=== PATIENT | male | born 1985 | race Two or more races ===

== ENCOUNTER 2022-01-08 03:06 | Inpatient (IN) | payer MEDICAID, OTHER ==
[~2022-01-08] VITALS: Ht 172.7 cm; Wt 99.1 kg
--- NOTE | 2022-01-08 03:16 | NUR ---
[id number] FROM THE [facility] C/O BILATERAL LEG PAIN +DEFORMITY S/P JUMPING DOWN 7FT FENCE. BILATERAL LOWER EXTRTEMITY DEFORMITIES, SPLINTED BY RA. NO OPEN TRAUMA -HEAD TRAUMA -KO. 100MCG FENTANYL GIVEN SALES RECRUITER. Addendum: 01/08/22 at 1418 by EIL CALLED [facility] AND WAS NOTIFIED THAT THEY HAVE RECIEVED THE DISC AND IS NOW UNDER REVIEW. AWAITING FOR ANY UPDATES
--- NOTE | 2022-01-08 03:19 | NUR ---
16G LAC PLACED PROFESSOR OF MECHANICAL ENGINEERING BY EMS. PATENT AND INTACT.
[2022-01-08] MEDS ORDERED: HYDROMORPHONE 1 MG/1 ML DISP.SYRIN ONE ×5 (03:27→23:17)
[2022-01-08] MEDS ORDERED: HYDROMORPHONE 1 MG/1 ML DISP.SYRIN IV ONE ×2 (03:30→08:00)
--- NOTE | 2022-01-08 03:37 | NUR ---
XRAY AT BEDSIDE
[2022-01-08 03:41] LABS: BASOPHILS # (AUTO) 0.1 K/uL (0.0-0.2); BASOPHILS % (AUTO) 0.9 % (0.0-2.0); EOSINOPHILS % (AUTO) 0.1 % (0.0-6.0); HEMATOCRIT 44 % (39-51); HEMOGLOBIN 15.3 g/dL (13.5-17.5); LYMPHOCYTES # (AUTO) 1.1 K/uL (0.8-4.8); LYMPHOCYTES % (AUTO) 10.8 % (20.0-44.0); MEAN CORPUSCULAR HGB CONC 35 g/dl (31.0-36.0); MEAN CORPUSCULAR VOLUME 88 fL (80-96); MONOCYTES # (AUTO) 0.8 K/uL (0.1-1.30); MONOCYTES % (AUTO) 8.2 % (2.0-12.0); NEUTROPHILS # (AUTO) 8.2 K/uL (1.8-8.9); PLATELET COUNT (AUTO) 213 K/uL (150-450); RED BLOOD CELL COUNT(AUTO) 5.04 MIL/uL (4.5-6.0); WHITE BLOOD COUNT (AUTO) 10.3 K/uL (4.3-11.0)
[2022-01-08 03:59] LABS: CALCIUM, SERUM 8.9 mg/dL (8.5-10.1); CREATININE 1.2 mg/dL (0.6-1.3); POTASSIUM 3.9 mmol/L (3.5-5.1)
--- NOTE | 2022-01-08 04:05 | NUR ---
DR BROCK ON THE PHONE WITH FRANCY BERNSTEIN FOR ORTHO CONSULT
[2022-01-08] MEDS ORDERED: LIDOCAINE 2% 20 ML MDV ONE (04:09)
[2022-01-08] MEDS ORDERED: LIDOCAINE 2% 20 ML MDV TP ONE (04:30)
--- NOTE | 2022-01-08 04:42 | NUR ---
BILATERAL SPLINTS APPLIED TO LOWER EXTREMITIES. SHORT LEG POSTERIOR WITH ANKLE STIRRUP BILATERALLY. PMS EQUAL AND INTACT.
--- NOTE | 2022-01-08 04:45 | NUR ---
LEFT FOR CT
--- NOTE | 2022-01-08 04:47 | NUR ---
COVID TEST COLLECTED AND SENT TO LAB
--- NOTE | 2022-01-08 04:48 | NUR ---
PT PROVIDED WITH WARM BLANKET FOR COMFORT.
[2022-01-08] MEDS ORDERED: MAGNESIUM HYDROXIDE 30 ML UDC PO PRN (05:00)
[2022-01-08] MEDS ORDERED: IV D5/0.45 NACL 1,000 ML IV PRN (05:00)
[2022-01-08] MEDS ORDERED: ONDANSETRON HCL/PF 4 MG/2 ML VIAL IVP PRN (05:00)
[2022-01-08] MEDS ORDERED: MORPHINE SULFATE INJ 2 MG/ML DISP.SYRIN IV PRN (05:00)
[2022-01-08] MEDS ORDERED: ACETAMINOPHEN 325 MG TABLET PO PRN (05:00)
[2022-01-08] MEDS ORDERED: MORPHINE SULFATE INJ 4 MG/ML DISP.SYRIN ONE (06:30)
--- NOTE | 2022-01-08 06:38 | NUR ---
PT PULLED OUT IV LINE. NEW IV LINE ESTABLISHED 20G LAC.
--- NOTE | 2022-01-08 07:27 | NUR ---
received a call from Dr. Yeh and was notified that the pt needs higher level of care to further admit this pt.
--- NOTE | 2022-01-08 07:33 | NUR ---
CALLED [facility] REGARDING PT POSSIBLE TRANSFER AND WAS NOTIFIED THAT THE [facility] IS CURRENTLY AT CAPACITY AND NOT ABLE TO TAKE THE PT
--- NOTE | 2022-01-08 07:46 | NUR ---
CALLED [facility] REGARDING PT TRANSFER AND GAVE CURRENT PT CLINICALS AND FAXED PT'S CLINICALS TO [phone]
--- NOTE | 2022-01-08 07:57 | NUR ---
CALLED [facility] AND WAS NOTIFIED OF PT STATUS AND FAXED OVER PT CLINICALS TO [phone]. AWAITING FOR A CALL BACK TO SEE IF PT CAN BE TRANSFERED
--- NOTE | 2022-01-08 07:58 | NUR ---
IV DISLODGED, 4X4 GUAZE AND PRESSURE APPLIED TO SITE. NEW IV ESTABLIHSED L HAND 18G.
--- NOTE | 2022-01-08 08:31 | NUR ---
[facility] CALLED AND WAS NOTIFIED THAT THEY ARE NOT ABLE TO TAKE THE PT DUE TO THEM BEING IN CAPACITY
--- NOTE | 2022-01-08 08:42 | NUR ---
CALLED [facility] TO INITIATE TRAUMA TRANSFER. GAVE PT CLINICALS VERBALLY AND ALSO FAXED PT'S CLINICALS TO [phone]. AWAITING A CALL BACK WITH ANY UPDATES
--- NOTE | 2022-01-08 10:06 | NUR ---
[facility] CALLED TO ASK FOR THE PT PHYSICAL DISC TO BE SEN OVER TO [facility] TRANSFER [facility]ENTER. THE ADRESS FOR DROP OFF IS [phone] [facility] [address] [facility] [facility] [phone]
--- NOTE | 2022-01-08 10:07 | NUR ---
CALLED THE EDUCATION INTERN TO SEND OVER PT DISC AND WAS NOTIFIED THAT THE ETA FOR [employer] WILL BE 1100
[2022-01-08] MEDS: HYDROMORPHONE 1 MG/1 ML DISP.SYRIN IV PRN ×3 (11:20→23:21)
--- NOTE | 2022-01-08 11:40 | NUR ---
BAUTISTA PICKED UP BY [place]
--- NOTE | 2022-01-08 14:18 | NUR ---
CALLED [facility] REGARDING PT DISC AND WAS NOTIFIED THAT THE DISC WAS RECEIVED AND AWAITING FEEDBACK.
--- NOTE | 2022-01-08 14:22 | NUR ---
CALLED [facility] REGARDING PT POSSIBLE ACCEPTANCE INFO AND WAS NOTIFIED THAT THE PT CANNOT BE ACCEPTED DUE TO NOT MEETING TRAUMA CRITERIA
--- NOTE | 2022-01-08 14:30 | NUR ---
PT PULLED OUT IV, 4X4 AND PRESSURE APPLIED.
--- NOTE | 2022-01-08 15:03 | NUR ---
CALLED DR. CHENG REGARDING PT STATUS AND ALSO PT ADMISSION STATUS FOR TRANSFER
--- NOTE | 2022-01-08 22:13 | NUR ---
REC'D A CALL FROM MIAH AT [facility] STATED" OUT ORTHO DR MARIA DEL CARMEN NIELSEN IS DENYING THE CASE AT THIS [facility] AND WANTS THE EXTERNAL FIXATION TO BE DONE BY YOUR ORTHO TEAM AT THE HOSPITAL BEFORE TRANSFERRING THE PATIENT". DR BROCK AND DR PHAM MADE AWARE. DAY, ORTHO PA, WAS PAGED AND DR BROCK SPOKE TO HIM.
--- NOTE | 2022-01-09 03:14 | NUR ---
PT SLEEPING COMFORTABLY, ABLE TO COMMUNICATE NEEDS AND ALL NEEDS MET. CALL LIGHT WITHIN REACH
[2022-01-09] MEDS ORDERED: HYDROMORPHONE 1 MG/1 ML DISP.SYRIN ONE ×3 (04:26→13:13)
[2022-01-09] MEDS: HYDROMORPHONE 1 MG/1 ML DISP.SYRIN IV PRN ×3 (04:28→13:38)
--- NOTE | 2022-01-09 07:30 | NUR ---
Lou lind pt in garny asleepy
--- NOTE | 2022-01-09 08:00 | NUR ---
RESING ASLEEPY ON AND OFF WATING FOR [facility]
[2022-01-09 08:47] LABS: BASOPHILS # (AUTO) 0.1 K/uL (0.0-0.2); BASOPHILS % (AUTO) 0.7 % (0.0-2.0); EOSINOPHILS % (AUTO) 0.3 % (0.0-6.0); HEMATOCRIT 35 % (39-51); HEMOGLOBIN 12.1 g/dL (13.5-17.5); LYMPHOCYTES # (AUTO) 1.1 K/uL (0.8-4.8); LYMPHOCYTES % (AUTO) 12.6 % (20.0-44.0); MEAN CORPUSCULAR HGB CONC 35 g/dl (31.0-36.0); MEAN CORPUSCULAR VOLUME 88 fL (80-96); MONOCYTES # (AUTO) 1.3 K/uL (0.1-1.30); MONOCYTES % (AUTO) 14.3 % (2.0-12.0); NEUTROPHILS # (AUTO) 6.4 K/uL (1.8-8.9); NEUTROPHILS % (AUTO) 72.1 % (43.0-81.0); PLATELET COUNT (AUTO) 156 K/uL (150-450); RED BLOOD CELL COUNT(AUTO) 3.93 MIL/uL (4.5-6.0); WHITE BLOOD COUNT (AUTO) 8.9 K/uL (4.3-11.0)
--- NOTE | 2022-01-09 08:51 | NUR ---
KEEP NPO PER DR. CHENG
--- NOTE | 2022-01-09 08:54 | NUR ---
CALLED [facility] [phone] NAPOLES TO CALL US BACK TO SPEAK WITH DR. CHENG
[2022-01-09 09:12] LABS: CALCIUM, SERUM 7.6 mg/dL (8.5-10.1); CREATININE 1.1 mg/dL (0.6-1.3); MAGNESIUM 2.3 mg/dL (1.8-2.4); PHOSPHORUS 3.3 mg/dL (2.5-4.9); POTASSIUM 4.1 mmol/L (3.5-5.1)
--- NOTE | 2022-01-09 09:21 | NUR ---
CALLED [facility] [phone] [facility] FAX [phone].
--- NOTE | 2022-01-09 09:53 | NUR ---
RESTING AND ASLEYP NO DISTRESS
--- NOTE | 2022-01-09 10:33 | NUR ---
YAZ FROM [facility] CALLED DR. NAPOLES IS IN SURGERY AND WANTED TO CONVEY THAT PT NEEDS EXTERNAL FIXATION PRIOR TO PRESENTATION. DR. CHENG INFORMED.
--- NOTE | 2022-01-09 11:03 | NUR ---
Henrietta doss in [facility] - 01/09/22 at 1119 by [email or web address] D/C INSTRACTION GIVEN TO PT AND FALLOW UP CARE GIVEN TO PT FULLY UNDERSTOOD PT REFUSED TO ADMIT INPT
--- NOTE | 2022-01-09 12:12 | NUR ---
[facility] CALLED PROFESSOR OF POLITICAL SCIENCE PAGED.
--- NOTE | 2022-01-09 12:49 | NUR ---
BED 109
[2022-01-09] MEDS ORDERED: ACETAMINOPHEN 325 MG TABLET PO PRN (13:00)
[2022-01-09] MEDS ORDERED: ONDANSETRON HCL/PF 4 MG/2 ML VIAL IVP PRN (13:00)
[2022-01-09] MEDS ORDERED: MORPHINE SULFATE INJ 2 MG/ML DISP.SYRIN IV PRN (13:00)
[2022-01-09] MEDS: IV NS 0.9% 1,000 ML IV SCH ×2 (13:08→22:33)
--- NOTE | 2022-01-09 13:17 | NUR ---
report given to marilynn baltazar to continue care.
[2022-01-09] MEDS ORDERED: MORPHINE SULFATE INJ 4 MG/ML DISP.SYRIN IV PRN (13:30)
--- NOTE | 2022-01-09 13:35 | NUR ---
SEEN BY ORTHO PA AT BED SIDE C/O PAIN 03/25 IN BOTH LOWER DILAUDID 1 MG IVP GIVEN
--- NOTE | 2022-01-09 13:40 | NUR ---
TO ROOM 109 MEDICALE FLOOR
--- NOTE | 2022-01-09 14:00 | NUR ---
RN NOTE PT RECEIVED FROM ER. [facility]. PT NOTED WITH BLE LEG WRAP. PT COMPLAINED OF MODERATE TO SEVERE PAIN DURING MOVEMENT OF BLE. V/S STABLE. WILL CONTINUE TO MONITOR.
[2022-01-09 16:00] VITALS: BP 144/94
[2022-01-09] MEDS ORDERED: DOCUSATE SODIUM LIQ 100 MG/10 ML UDC PO SCH (17:00)
[2022-01-09] MEDS ORDERED: ROCURONIUM BROMIDE 50 MG/5 ML ONE (17:46)
[2022-01-09] MEDS ORDERED: FENTANYL PF 250MCG/5ML AMPUL ONE (17:46)
--- NOTE | 2022-01-09 17:55 | NUR ---
RN NOTE PT TAKEN TO SURGERY. IN GOOD CONDITION. V/S STABLE.. WILL ENDORSE TO NEXT SHIFT. CONSENT FORMS SIGNED AND PRE OP CHECKLIST DONE.
[2022-01-09] MEDS ORDERED: BUPIVACAINE 0.25% 75 MG/30 ML VIAL ONE (18:56)
[2022-01-09] MEDS ORDERED: MIDAZOLAM HCL 2 MG/2ML VIAL ONE ×3 (20:06→20:49)
[2022-01-09] MEDS ORDERED: FENTANYL PF 100MCG/2ML AMPUL ONE (20:47)
[2022-01-09] MEDS ORDERED: ANESTHESIA TRAY IN PYXIS 1 EA TRAY MC ONE (20:50)
[2022-01-09] MEDS ORDERED: HEPARIN SODIUM, PORCINE 5000 UNITS/1 ML VIAL SQ SCH (21:00)
[2022-01-09] MEDS ORDERED: DOCUSATE SODIUM 250 MG CAPSULE PO PRN (21:00)
[2022-01-09] MEDS ORDERED: BISACODYL SUPP (10 MG) 10 MG/SUPP.RECT SUPP.RECT RC PRN (21:00)
[2022-01-09] MEDS ORDERED: SENNOSIDES 8.6 MG TABLET PO PRN (21:00)
--- NOTE | 2022-01-09 21:00 | NUR ---
POST OP Patient transferred from PACU, s/p stephan lower extremity external fixator. Dressing reinforced with PEPE Gee. Patient appears restless and confused, trying to reach out fixator and moving his legs sideways. Unable to educate at this time. Fall precaution maintained.
[2022-01-09 21:44] VITALS: BP 149/90
--- NOTE | 2022-01-09 22:20 | NUR ---
RESTRAINTS Patient restless, trying to reach out fixators, removed NC Oxygen by himself. Appears confused. Notified TEXTILE ENGINEER Martine Fu with orders place. Applied stephan soft wrist restraints to prevent pulling tubes/lines and injury.
[2022-01-09] MEDS: MORPHINE SULFATE INJ 4 MG/ML DISP.SYRIN IV PRN (22:22)
--- NOTE | 2022-01-09 22:22 | NUR ---
LEG/KNEE PAIN Patient restless, screaming, severe pain BLE. PRN Morphine given, will reassess pain.
[2022-01-09 23:00] VITALS: BP 135/82
[2022-01-10 00:07] VITALS: BP 139/88
--- NOTE | 2022-01-10 00:10 | NUR ---
LEG/KNEE PAIN Patient c/o leg/knee pain described as aching and sharp 12/23. PRN Blakeslee given, will reassess pain level. Addendum: 01/10/22 at 0730 by RIYA CANO RN [id number] Medication Blakeslee, administration not save by accident. Medication was pulled out from [employer], given to patient at 0010. Shyam/fullerette informed the incident. Empty packet of Blakeslee re scanned after original time was given to patient for records.
[2022-01-10] MEDS: HYDROCODONE/APAP 5/325MG TABLET PO PRN (02:26)
--- NOTE | 2022-01-10 03:00 | NUR ---
TRIAL REMOVED RESTRAINTS Patient in bed, more alert now. Ask for food to eat, provided. Good appetite. Education given on restraints, Risk and Benefits explained, patient verbalized understanding. Will cont to monitor.
[2022-01-10] MEDS: ANCEF 1 GM/50 ML D5W IV SCH ×4 (03:14→10:33)
[2022-01-10] MEDS: MORPHINE SULFATE INJ 4 MG/ML DISP.SYRIN IV PRN ×3 (04:53→17:00)
--- NOTE | 2022-01-10 04:53 | NUR ---
BLE PAIN Patient c/o severe pain 03/25 BLE. Denies N/V. Now on room air, tolerating well. PRN Morphine given, will reassess.
--- NOTE | 2022-01-10 05:00 | NUR ---
RESTRAINTS D/C Patient more alert now. Good appetite, handle conversation. Trial released Juan R soft wrist restraints successful. No skin injury under restraints.
[2022-01-10 05:24] VITALS: BP 122/87
[2022-01-10 06:53] LABS: BASOPHILS % (AUTO) 0.1 % (0.0-2.0); HEMATOCRIT 32 % (39-51); HEMOGLOBIN 11.6 g/dL (13.5-17.5); LYMPHOCYTES # (AUTO) 0.4 K/uL (0.8-4.8); LYMPHOCYTES % (AUTO) 4.3 % (20.0-44.0); MEAN CORPUSCULAR HGB CONC 36 g/dl (31.0-36.0); MEAN CORPUSCULAR VOLUME 87 fL (80-96); MONOCYTES # (AUTO) 0.8 K/uL (0.1-1.30); MONOCYTES % (AUTO) 9.5 % (2.0-12.0); NEUTROPHILS # (AUTO) 7.5 K/uL (1.8-8.9); NEUTROPHILS % (AUTO) 86.1 % (43.0-81.0); PLATELET COUNT (AUTO) 156 K/uL (150-450); RED BLOOD CELL COUNT(AUTO) 3.66 MIL/uL (4.5-6.0); WHITE BLOOD COUNT (AUTO) 8.7 K/uL (4.3-11.0)
--- NOTE | 2022-01-10 07:14 | NUR ---
RN OPENING NOTE- PT ASLEEP IN BED, EASILY AWAKENED THOUGH IRRITABLE AT INTRUSION. AOX4. BILATERAL LOWER EXTREMITIES W S/P SURGICAL INTERVENTION. EXTERNAL FIXATORS IN PLACE. DRESSINGS DRY/INTACT. PT STATES COMFORTABLE. IV NS AT 75/HR. RESTRAINTS NOT IN USE AT PRESENT. BED LOCKED. CALL LIGHT IN REACH/ MONITOR / ASSIST
--- NOTE | 2022-01-10 07:14 | NUR ---
END OF SHIFT REPORT Patient is A/O x3. Tolerating room air, Oxygen sat 100%. BLE incision, reinforced dressing, BLE external fixator. Leg/knee pain controlled with PRN [place] and Morphine. IVF infusing, on IV abx. Afebrile. Good appetite, voiding urine large amt. No BM during the shift. Fall precaution maintained. Plan for PT eval. NWB BLE per ortho. Care endorsed to PEPE Lua.
[2022-01-10 07:23] LABS: ALBUMIN 2.8 g/dL (3.4-5.0); BILIRUBIN,TOTAL 0.7 mg/dL (0.2-1.0); CALCIUM, SERUM 7.6 mg/dL (8.5-10.1); CREATININE 0.7 mg/dL (0.6-1.3); MAGNESIUM 2.3 mg/dL (1.8-2.4); PHOSPHORUS 1.9 mg/dL (2.5-4.9); POTASSIUM 3.9 mmol/L (3.5-5.1); TOTAL PROTEIN, SERUM 6.4 g/dL (6.4-8.2)
[2022-01-10 08:00] VITALS: BP 138/83
[2022-01-10] MEDS: ENOXAPARIN SODIUM 40 MG/0.4 ML DISP.SYRIN SQ SCH (08:43)
[2022-01-10] MEDS: POLYETHYLENE GLYCOL 3350 17 GM POWD.PACK PO SCH (08:43)
[2022-01-10] MEDS: ACETAMINOPHEN 325 MG TABLET PO PRN (09:07)
--- NOTE | 2022-01-10 09:07 | NUR ---
RN NOTE- TEMP - 99.4. TYLENOL 650 MG ADMINISTERED
[2022-01-10] MEDS: IV NS 0.9% 1,000 ML IV SCH ×2 (12:16→18:30)
[2022-01-10 16:00] VITALS: BP 140/78
[2022-01-10] MEDS ORDERED: K PHOS NEUTRAL 250 MG TABLET PO ONE (17:00)
--- NOTE | 2022-01-10 17:00 | NUR ---
RN NOTE- GAVE MORPHINE 3 MG DOSE TO PATIENT AND HAD RADHA ZAMARRIPA RN WITNESS AND WASTE W THIS RN. THREW REMAINING WASTE IN SHARPS W RADHA ZAMARRIPA RN WITHOUT SCANNING. NOTING ADMINISTRATION AND WITNESSED WASTE HERE.
--- NOTE | 2022-01-10 18:03 | NUR ---
RN NOTE- SURGICAL DRESSING LT FOOT WEEPING/ DRAINING. REINFORCED W 4X4 AND KERLIX GAUZE. TOLERATED WELL ORTHO PA AT BEDSIDE TO [facility]. FOR DC TO [facility] TOMORROW
--- NOTE | 2022-01-10 18:41 | NUR ---
RN CLOSING NOTE- - PT AWAKE IN BED. AOX4. BILATERAL LOWER EXTREMITIES W S/P SURGICAL INTERVENTION. EXTERNAL FIXATORS IN PLACE. DRESSINGS DRY/INTACT AFTER REINFORCED, PT STATES COMFORTABLE W CURRENT ANALGESIA, . IV NS AT 175/HR. RESTRAINTS NOT IN USE AT PRESENT. BED LOCKED. CALL LIGHT IN REACH/ MONITOR / ASSIST
[2022-01-10] MEDS: HYDROCODONE/APAP 10/325MG TABLET PO PRN (19:51)
--- NOTE | 2022-01-10 19:54 | NUR ---
MS RN OPENING NOTE PATIENT AWAKE IN BED, ALERT/ORIENTED X 4, PATIENT ABLE TO MAKE NEEDS KNOWN. PATIENT C/O OF 10/10 BILATERAL LEG PAIN, GAVE NORCO 10-325 MG PO ORDERED. PT STABLE ON RA, NO S/S OF DISTRESS OR SOB NOTED, BREATHING EVEN AND UNLABORED, SPO2: 99%. BILATERAL LEG EXTERNAL FIXATORS IN PLACE, DRESSING CLEAN, DRY AND INTACT. IV ACCESS ON RIGHT WRIST #20G INTACT AND INFUSING NS @ 175 ML/HR. SAFETY MEASURES IN PLACE: CALL LIGHT WITHIN REACH, SIDE RAILS UP X 2, BED LOCKED IN LOWEST POSITION, BED ALARM ON. WILL CONTINUE TO MONITOR PATIENT
[2022-01-10 20:00] VITALS: BP 124/72
[2022-01-11] MEDS: IV NS 0.9% 1,000 ML IV SCH ×5 (00:10→23:23)
[2022-01-11] MEDS: MORPHINE SULFATE INJ 4 MG/ML DISP.SYRIN IV PRN ×5 (00:10→22:24)
[2022-01-11 04:00] VITALS: BP 127/66
--- NOTE | 2022-01-11 06:47 | NUR ---
MS RN CLOSING NOTE PATIENT AWAKE IN BED, ALERT/ORIENTED X 4, PATIENT ABLE TO MAKE NEEDS KNOWN. PT STABLE ON RA, NO S/S OF DISTRESS OR SOB NOTED, BREATHING EVEN AND UNLABORED, SPO2: 100% ON RA. BILATERAL LEG EXTERNAL FIXATORS IN PLACE. IV ACCESS ON RIGHT WRIST #20G INTACT AND INFUSING NS @ 175 ML/HR. MEDICATIONS GIVEN ORDERED, PT NEEDS MET THROUGHOUT SHIFT. SAFETY MEASURES IN PLACE: CALL LIGHT WITHIN REACH, SIDE RAILS UP X 2, BED LOCKED IN LOWEST POSITION, BED ALARM ON. WILL ENDORSE TO DAY SHIFT NURSE FOR CONTINUITY OF CARE
--- NOTE | 2022-01-11 07:51 | NUR ---
MS RN OPENING NOTE PATIENT AWAKE IN BED, ALERT/ORIENTED X 4, PATIENT ABLE TO MAKE NEEDS KNOWN. PT STABLE ON RA, NO S/S OF DISTRESS OR SOB NOTED, BREATHING EVEN AND UNLABORED, SPO2: 99% ON RA. BILATERAL LEG EXTERNAL FIXATORS IN PLACE. IV ACCESS ON RIGHT WRIST #20G INTACT AND INFUSING NS @ 175 ML/HR. SAFETY MEASURES IN PLACE: CALL LIGHT WITHIN REACH, SIDE RAILS UP X 2, BED LOCKED IN LOWEST POSITION, BED ALARM ON. WILL CONTINUE PLAN OF CARE.
[2022-01-11 08:00] VITALS: BP 135/62
[2022-01-11] MEDS: POLYETHYLENE GLYCOL 3350 17 GM POWD.PACK PO SCH (08:10)
[2022-01-11] MEDS: ENOXAPARIN SODIUM 40 MG/0.4 ML DISP.SYRIN SQ SCH (08:30)
[2022-01-11] MEDS: HYDROCODONE/APAP 10/325MG TABLET PO PRN ×2 (08:39→19:57)
--- NOTE | 2022-01-11 09:01 | NUR ---
CHARGE NURSE AND MD NOTIFIED PATIENT IS IN PAIN AND HAS EXTERNAL FIXATORON BLE. ORDERED TO CANCEL PT EVAL. CANCELLED ORDERED.
--- NOTE | 2022-01-11 11:35 | NUR ---
PT'S DRESSING ON BLE FIXATOR HAS LEAK. WOUND NURSE AND CHARGE NURSE NOTIFIED. MESSAGED MD INSTRUCTED. AWAITING MD RESPONSE IF DRESSING CAN BE REINFORCED OR CHANGED.
--- NOTE | 2022-01-11 11:47 | NUR ---
SS Consult requested for homelessness. Pt. is a 36-year-old male who was admitted to [facility] due to Tib-Fib Fracture. Upon SS consult, pt. is alert and oriented x4. Pt. presents with a depressed mood and congruent affect. Pt. appears unkempt and does not provide appropriate eye contact. Pt. appears tired and was cooperative throughout the interview. certified financial planner explored the pt.s current living situation. Pt. stated he lives with his mother at [address] [place] [address] [place] [address]. Pt. stated that he is not homeless. Pt. stated he was going to [place] on the amtrack. Pt. stated that he decided not to go and stopped on the amtrack in [place]. Pt. stated he planned on returning to at [address] [place] [address] [place] [address] to live with his mother. Pt. stated he has a sister Jessica ([phone]) that may provide him with transportation when pt. is medically cleared. certified financial planner explored pt.s substance abuse hx. Pt. stated that he has a substance use hx with methamphetamine but has not used in a while. certified financial planner offered pt. substance use resources to [facility] ([address] [place] [address]). Pt. denied suicidal/homicidal ideation. Pt. denied visual and auditory hallucinations. Plan: Pt. is pending discharge to a higher-level of care. Pt. stated he will return to live with his mother at [address] [place] [address] [place] [address].
[2022-01-11] MEDS: HYDROCODONE/APAP 5/325MG TABLET PO PRN (11:54)
--- NOTE | 2022-01-11 15:00 | NUR ---
PT'S SISTER CALLED REQUESTING FOR PT TO BE TRANSFERRED TO A HOSPITAL IN [place]. CM NOTIFIED AND WILL VERIFY WITH PT AND FAMILY. SISTER'S PHONE NUMBER (JOVANY) [phone] PROVIDED TO NAPOLEON.
[2022-01-11 16:00] VITALS: BP 133/70
--- NOTE | 2022-01-11 18:26 | NUR ---
MS RN CLOSING NOTE PATIENT AWAKE IN BED, ALERT/ORIENTED X 4, PATIENT ABLE TO MAKE NEEDS KNOWN. PT STABLE ON RA, NO S/S OF DISTRESS, SPO2: 100% ON RA. BILATERAL LEG EXTERNAL FIXATORS IN PLACE, ASSISTED PA DURING WOUND DRESSING CHANGE. IV ACCESS ON RIGHT WRIST #20G INTACT AND INFUSING NS @ 175 ML/HR. MEDICATIONS GIVEN ORDERED, PT NEEDS MET THROUGHOUT SHIFT. SAFETY MEASURES IN PLACE: CALL LIGHT WITHIN REACH, SIDE RAILS UP X 2, BED LOCKED IN LOWEST POSITION, BED ALARM ON. WILL ENDORSE TO NEXT NURSE ON DUTY FOR CONTINUITY OF CARE.
--- NOTE | 2022-01-11 19:30 | NUR ---
RN NOTE Received patient in bed, sleeping, arousable to name and touch. AOX4 and able to make needs known. breathing even and unlabored. patient on room air with no distress. Denies chest pain. Skin warm and dry to touch. noted with right wrist 20g infusing ns at 175 cc/hr. Noted with bilateral lower extremity external fixator. dressing intact. Assisted with turning and repositioning. bed low, in locked position. call light within reach.
[2022-01-11 20:00] VITALS: BP 121/76
--- NOTE | 2022-01-11 20:01 | NUR ---
RN NOTE Patient complaining of 10/10 pain. noted with facial grimacing. Patient with present bilateral ankle fracture. administered norco 10-325 PRN per md order. Assisted with turning and repositioning. Will continue to monitor.
[2022-01-12] MEDS: MORPHINE SULFATE INJ 4 MG/ML DISP.SYRIN IV PRN ×5 (03:16→21:44)
--- NOTE | 2022-01-12 03:22 | NUR ---
RN NOTE Patient complaining of 10/10 pain. noted with facial grimacing groaning. Patient with present bilateral ankle fracture. administered morphine PRN per md order. Assisted with turning and repositioning. Will continue to monitor.
[2022-01-12] MEDS: IV NS 0.9% 1,000 ML IV SCH ×2 (05:15→11:45)
[2022-01-12] MEDS: HYDROCODONE/APAP 10/325MG TABLET PO PRN (05:43)
--- NOTE | 2022-01-12 05:44 | NUR ---
RN NOTE Patient complaining of 10/10 pain. noted with facial grimacing groaning, screaming,. Patient with present bilateral ankle fracture. administered norco 10-325mg PRN per md order. Assisted with turning and repositioning. Will continue to monitor.
--- NOTE | 2022-01-12 06:16 | NUR ---
MS RN NOTE SUPERIOR KY BRUNNER ARRIVED IN LOBBY TO FINISH REPAIR WORKER CD FOR [facility]. ACCORDING TO MYESHA IT WAS ARRANGED BY CEASAR. CD GIVEN TO HIM.
--- NOTE | 2022-01-12 06:20 | NUR ---
MS PEPE NOTE MADE AWARE BY PEPE SPENCER THAT A ASSEMBLER WATCH TRAIN PICKED UP A CD FOR RADIOLOGY FOR [facility] THAT HAD BEEN PREVIOUSLY ARRANGED.
--- NOTE | 2022-01-12 06:54 | NUR ---
MS RN CLOSING NOTE PATIENT ASLEEP IN BED, ALERT/ORIENTED X 4, PATIENT ABLE TO MAKE NEEDS KNOWN. PT STABLE ON RA, NO S/S OF DISTRESS, SPO2: 98% ON RA. BILATERAL LEG EXTERNAL FIXATORS IN PLACE. IV ACCESS ON RIGHT WRIST #20G INTACT AND INFUSING NS @ 175 ML/HR. MEDICATIONS GIVEN ORDERED, PRN PAIN MEDS GIVEN NEEDED.PT NEEDS MET THROUGHOUT SHIFT. PRN PAIN MANAGEMENT PROVIDED.SAFETY MEASURES IN PLACE: CALL LIGHT WITHIN REACH, SIDE RAILS UP X 2, BED LOCKED IN LOWEST POSITION, BED ALARM ON. WILL ENDORSE TO NEXT NURSE ON DUTY FOR CONTINUITY OF CARE.
--- NOTE | 2022-01-12 07:30 | NUR ---
MS RN OPENING NOTE PATIENT AWAKE IN BED, ALERT/ORIENTED X 4, PATIENT ABLE TO VERBALIZED NEEDS.NO SOB OR CARDIAC DISTRESS NOTED, ON ROOM AIR AND TOLERATING WELL. BILATERAL LEG EXTERNAL FIXATORS IN PLACE. IV ACCESS ON RIGHT WRIST #20G INTACT AND INFUSING NS @ 175 ML/HR. SAFETY MEASURES IN PLACE: CALL LIGHT WITHIN REACH, SIDE RAILS UP X 2, BED LOCKED IN LOWEST POSITION, BED ALARM ON. KEPT RESTED AND COMFORTABLE. CALL LIGHT WITHIN REACH FOR HELP.
[2022-01-12 08:00] VITALS: BP 125/70
[2022-01-12] MEDS: POLYETHYLENE GLYCOL 3350 17 GM POWD.PACK PO SCH (08:13)
[2022-01-12] MEDS: ENOXAPARIN SODIUM 40 MG/0.4 ML DISP.SYRIN SQ SCH (08:14)
[2022-01-12 09:00] VITALS: BP 125/76
[2022-01-12 16:00] VITALS: BP 127/85
--- NOTE | 2022-01-12 19:47 | NUR ---
MS RN CLOSING NOTE PATIENT DOZING OFF, ALERT/ORIENTED X 4, PATIENT ABLE TO VERBALIZED NEEDS.NO SOB OR CARDIAC DISTRESS NOTED, ON ROOM AIR AND TOLERATING WELL. BILATERAL LEG EXTERNAL FIXATORS IN PLACE, INTACT AND NO S/S OF DRAINAGE. IV ACCESS ON RIGHT WRIST #20G INTACT AND INFUSING NS @ 175 ML/HR. SAFETY MEASURES IN PLACE: CALL LIGHT WITHIN REACH, SIDE RAILS UP X 2, BED LOCKED IN LOWEST POSITION, BED ALARM ON. KEPT RESTED AND COMFORTABLE. CALL LIGHT WITHIN REACH FOR HELP.ON PAIN MANAGEMENT. ENDORSED TO ASSISTANT PROFESSOR OF EDUCATION FOR JOSE.
[2022-01-12 20:00] VITALS: BP 120/71
--- NOTE | 2022-01-12 20:27 | NUR ---
MS RN OPENING NOTES: RECEIVED PATIENT AWAKE IN BED, BED IN LOW POSITION CALL LIGHTS WITHIN REACH, ON ROOM AIR SATURATING WELL, PATIENT IS A/OX4 ABLE TO MAKE NEEDS KNOWN, WITH BLE EXTERNAL FIXATOR, PATIENT ON PAIN MANAGEMENT, IV LINE AT RIGHT WRIST #20SL, PATIENT KEPT CLEAN AND DRY ALL NEEDS MET WILL CONTINUE TO MONITOR.
[2022-01-12 21:00] VITALS: BP 120/71
[2022-01-13] MEDS: MORPHINE SULFATE INJ 4 MG/ML DISP.SYRIN IV PRN ×6 (01:45→21:37)
[2022-01-13 06:05] LABS: BASOPHILS # (AUTO) 0.1 K/uL (0.0-0.2); BASOPHILS % (AUTO) 1.1 % (0.0-2.0); EOSINOPHILS % (AUTO) 3.2 % (0.0-6.0); HEMATOCRIT 36 % (39-51); HEMOGLOBIN 12.5 g/dL (13.5-17.5); LYMPHOCYTES # (AUTO) 1.6 K/uL (0.8-4.8); LYMPHOCYTES % (AUTO) 18.5 % (20.0-44.0); MEAN CORPUSCULAR HGB CONC 35 g/dl (31.0-36.0); MEAN CORPUSCULAR VOLUME 88 fL (80-96); MONOCYTES # (AUTO) 1.1 K/uL (0.1-1.30); MONOCYTES % (AUTO) 13.6 % (2.0-12.0); NEUTROPHILS # (AUTO) 5.4 K/uL (1.8-8.9); NEUTROPHILS % (AUTO) 63.6 % (43.0-81.0); PLATELET COUNT (AUTO) 249 K/uL (150-450); RED BLOOD CELL COUNT(AUTO) 4.03 MIL/uL (4.5-6.0); WHITE BLOOD COUNT (AUTO) 8.4 K/uL (4.3-11.0)
--- NOTE | 2022-01-13 06:13 | NUR ---
MS RN CLOSING NOTES: PATIENT SLEEP IN BED COMFORTABLY, BED IN LOW POSITION CALL LIGHTS WITHIN REACH, NO COMPLAIN OF PAIN AND DISCOMFORT AT THIS TIME, ON PAIN MANAGEMENT, ON ROOM AIR SATURATING WELL PATIENT IS S/P BLE EXTERNAL FIXATION DRESSING CHANGE, PATIENT KEPT CLEAN AND DRY ALL NEEDS MET ENDORSE TO INCOMING SHIFT.
[2022-01-13 06:54] LABS: CALCIUM, SERUM 8.6 mg/dL (8.5-10.1); CREATININE 0.7 mg/dL (0.6-1.3); MAGNESIUM 2.1 mg/dL (1.8-2.4); PHOSPHORUS 3.8 mg/dL (2.5-4.9); POTASSIUM 3.8 mmol/L (3.5-5.1)
--- NOTE | 2022-01-13 08:00 | NUR ---
RN OPENING NOTE PATIENT RECEIVED IN BED, AO X 4, ABLE TO RESPONDS ALL STIMULI. IN NO ACUTE DISTRESS NOTED. RESPIRATORY EVEN AND UNLABORED ON ROOM AIR. SKIN IS WARM TO TOUCH, KEEP CLEAN/DRY. KEPT ELEVATED HOB FOR ENSURE AIRWAY AND ASPIRATION PRECAUTION, ALSO LOWEST POSITION OF THE BED, S/R UP X 3, BED ALARM IS ON AT ALL THE TIMES. ALL SAFETY PRECAUTION APPLIED. CALL LIGHT WITHIN REACH, WILL CONTINUE TO MONITOR.
[2022-01-13] MEDS: ENOXAPARIN SODIUM 40 MG/0.4 ML DISP.SYRIN SQ SCH (08:53)
[2022-01-13] MEDS: POLYETHYLENE GLYCOL 3350 17 GM POWD.PACK PO SCH (08:53)
--- NOTE | 2022-01-13 18:43 | NUR ---
N CLOSING NOTE PATIENT IN BED RESTING. IN NO ACUTE DISTRESS NOTED. RESPIRATORY EVEN AND UNLABORED ON OXYGEN ON ROOM AIR. SKIN IS WARM TO TOUCH, KEEP CLEAN/DRY. KEPT ELEVATED HOB FOR ENSURE AIRWAY AND ASPIRATION PRECAUTION, BED IN LOWEST POSITION AND LOCK. BED ALARM IS ON AT ALL THE TIMES. ALL SAFETY MEASURED IN PLACED. CALL LIGHT WITHIN REACH, WILL ENDORSED TO NEXT SHIFT.
--- NOTE | 2022-01-13 19:15 | NUR ---
MS RN OPENING NOTE PATIENT AWAKE IN BED, ALERT/ORIENTED X4, PATIENT ABLE TO VERBALIZED NEEDS. NO SOB OR CARDIAC DISTRESS NOTED, ON ROOM AIR AND TOLERATING WELL. BILATERAL LEG EXTERNAL FIXATORS IN PLACE. IV ACCESS ON RIGHT WRIST #20G PATENT AND INTACT. SAFETY MEASURES IN PLACE: CALL LIGHT WITHIN REACH, SIDE RAILS UP X 2, BED LOCKED IN LOWEST POSITION, BED ALARM ON. KEPT RESTED AND COMFORTABLE. CALL LIGHT WITHIN REACH FOR HELP. WILL CONTINUE TO MONITOR THROUGHOUT THE SHIFT.
[2022-01-13] MEDS: HYDROCODONE/APAP 10/325MG TABLET PO PRN (19:49)
[2022-01-13 20:00] VITALS: BP 129/77
[2022-01-13 20:53] VITALS: BP 129/77
[2022-01-13 21:00] VITALS: BP 128/68
[2022-01-14] MEDS: MORPHINE SULFATE INJ 4 MG/ML DISP.SYRIN IV PRN ×5 (02:08→22:28)
[2022-01-14] MEDS: HYDROCODONE/APAP 10/325MG TABLET PO PRN ×2 (05:29→12:10)
--- NOTE | 2022-01-14 06:49 | NUR ---
MS RN CLOSING NOTE PATIENT IN BED ASLEEP, EASILY AROUSABLE, PATIENT ABLE TO VERBALIZE NEEDS. NO SOB NOR CARDIAC DISTRESS NOTED, ON ROOM AIR AND TOLERATING WELL. BILATERAL LEG EXTERNAL FIXATORS IN PLACE. IV ACCESS ON RIGHT WRIST #20G PATENT AND INTACT. SAFETY MEASURES IN PLACE: CALL LIGHT WITHIN REACH, SIDE RAILS UP X2, BED LOCKED IN LOWEST POSITION, BED ALARM ON. KEPT RESTED AND COMFORTABLE. CALL LIGHT WITHIN REACH FOR HELP. WILL ENDORSE TO DAY SHIFT FOR CONTINUITY OF CARE.
--- NOTE | 2022-01-14 07:20 | NUR ---
RN OPENING NOTES RECEIVED PATIENT IN BED. A/O X4. NO C/O OF PAIN AT THIS TIME. ON RA WITH NO SOB OR DISTRESS NOTED. SAFETY PRECAUTIONS IN PLACE. WILL CONTINUE TO MONITOR
[2022-01-14 09:00] VITALS: BP 122/60
[2022-01-14] MEDS: POLYETHYLENE GLYCOL 3350 17 GM POWD.PACK PO SCH (09:00)
[2022-01-14] MEDS: ENOXAPARIN SODIUM 40 MG/0.4 ML DISP.SYRIN SQ SCH (09:01)
--- NOTE | 2022-01-14 16:00 | NUR ---
RN NOTES PCR COVID SWAB OBTAINED AND SENT TO THE LAB
--- NOTE | 2022-01-14 19:40 | NUR ---
RN NOTES ENDORSED REPORT TO THE COMBAT CONTROL NURSE FOR JOSE
[2022-01-14 20:00] VITALS: BP 135/95
[2022-01-14] MEDS: ACETAMINOPHEN 325 MG TABLET PO PRN (20:12)
--- NOTE | 2022-01-14 20:24 | NUR ---
MS RN OPENING NOTES: [id number] PATIENT AWAKE IN BED, BED IN LOW POSITION CALL LIGHTS WITHIN REACH, NO COMPLAIN OF PAIN AND DISCOMFORT AT THIS TIME ON ROOM AIR SATURATING WELL, PATIENT IS A/OX4 ABLE TO MAKE NEEDS KNOWN, PATIENT KEPT CLEAN AND DRY ALL NEEDS MET, WILL CONTINUE TO MONITOR.
[2022-01-14 21:00] VITALS: BP 135/95
[2022-01-15] MEDS: MORPHINE SULFATE INJ 4 MG/ML DISP.SYRIN IV PRN ×6 (02:23→23:47)
--- NOTE | 2022-01-15 07:30 | NUR ---
MS RN OPENING NOTES RECEIVED PATIENT ON BED AWAKE AND A/O X4. ON ROOM AIR TOLERATING WELL. NO SOB NOTED. NOT IN DISTRESS. WITH NO COMPLAINTS OF PAIN AT THIS TIME. WITH BILATERAL LOWER EXTREMITY FIXATORS WITH CLEAN AND DRY DRESSING. WITH IV ACCESS AT THE RIGHT WRIST G20 SALINE LOCKED, PATENT AND INTACT. SAFETY MEASURES IN PLACED. CALL LIGHT WITHIN REACH. BED ON LOWEST LOCKED POSITION, SIDE RAILS UP X2. WILL CONTINUE TO MONITOR.
[2022-01-15 08:00] VITALS: BP 130/75
[2022-01-15] MEDS: POLYETHYLENE GLYCOL 3350 17 GM POWD.PACK PO SCH (08:52)
[2022-01-15] MEDS: ENOXAPARIN SODIUM 40 MG/0.4 ML DISP.SYRIN SQ SCH (08:52)
[2022-01-15] MEDS: HYDROCODONE/APAP 10/325MG TABLET PO PRN ×3 (08:58→21:37)
[2022-01-15 09:00] VITALS: BP 130/75
[2022-01-15 16:12] VITALS: BP 112/64
--- NOTE | 2022-01-15 18:44 | NUR ---
MS RN CLOSING NOTES PATIENT ON BED AWAKE AND A/O X4. ON ROOM AIR TOLERATING WELL. NO SOB NOTED. NOT IN DISTRESS. WITH COMPLAINTS OF PAIN AT THE SCALE OF 4 ON BOTH LOWER EXTREMITIES. COMFORT MEASURES PROVIDED. WITH BILATERAL LOWER EXTREMITY FIXATORS WITH CLEAN AND DRY DRESSING. WITH IV ACCESS AT THE RIGHT WRIST G20 SALINE LOCKED, PATENT AND INTACT. DUE MEDS GIVEN. SAFETY MEASURES IN PLACED. CALL LIGHT WITHIN REACH. BED ON LOWEST LOCKED POSITION, SIDE RAILS UP X2. WILL ENDORSE TO NEXT SHIFT FOR JOSE.
--- NOTE | 2022-01-15 19:57 | NUR ---
MS RN OPENING NOTE RECEIVED PATIENT SITTING IN BED, A/OX4. NO S/S OF APPARENT DISTRESS IN ROOM AIR. C/O 05/25 PAIN AT THIS TIME-- GIVEN MORPHINE. NO FLUIDS RUNNING AT THIS TIME. RE-ORIENTED AND ENCOURAGED WITH THE USE OF CALL LIGHT. SAFETY IN PLACE. WILL CONTINUE WITH PATIENT'S PLAN OF CARE.
[2022-01-15 20:00] VITALS: BP 118/61
[2022-01-16] MEDS: HYDROCODONE/APAP 10/325MG TABLET PO PRN ×3 (02:41→16:37)
[2022-01-16] MEDS: MORPHINE SULFATE INJ 4 MG/ML DISP.SYRIN IV PRN ×4 (04:01→19:56)
--- NOTE | 2022-01-16 04:04 | NUR ---
MS RN NOTE- NEUROVASCULAR ASSESSMENT PULSE NOTED. NO PALLOR, PARESTHESIA, PARALYSIS NOTED. STILL C/O PAIN. MANAGED WITH MEDICATION. WILL CONTINUE TO MONITOR. BANDAGE CLEAN, DRY AND INTACT.
[2022-01-16 05:59] LABS: BASOPHILS % (AUTO) 0.7 % (0.0-2.0); EOSINOPHILS % (AUTO) 4.2 % (0.0-6.0); HEMATOCRIT 34 % (39-51); HEMOGLOBIN 11.9 g/dL (13.5-17.5); LYMPHOCYTES # (AUTO) 1.2 K/uL (0.8-4.8); LYMPHOCYTES % (AUTO) 20.4 % (20.0-44.0); MEAN CORPUSCULAR HGB CONC 35 g/dl (31.0-36.0); MEAN CORPUSCULAR VOLUME 87 fL (80-96); MONOCYTES # (AUTO) 0.9 K/uL (0.1-1.30); MONOCYTES % (AUTO) 15.3 % (2.0-12.0); NEUTROPHILS # (AUTO) 3.6 K/uL (1.8-8.9); NEUTROPHILS % (AUTO) 59.4 % (43.0-81.0); PLATELET COUNT (AUTO) 307 K/uL (150-450); WHITE BLOOD COUNT (AUTO) 6.1 K/uL (4.3-11.0)
[2022-01-16 06:07] LABS: CALCIUM, SERUM 8.6 mg/dL (8.5-10.1); CREATININE 0.8 mg/dL (0.6-1.3); MAGNESIUM 2.3 mg/dL (1.8-2.4)
--- NOTE | 2022-01-16 07:00 | NUR ---
MS RN CLOSING NOTE PATIENT IN BED FLAT, WITH EYES CLOSED, EASY TO AROUSE. NO S/S OF APPARENT DISTRESS IN ROOM AIR. PAIN MANAGED WITH MEDICATIONS. NEEDS ATTENDED. SAFETY KEPT IN PLACE THE WHOLE SHIFT. D/C PLAN IN PLACE, WILL ENDORSE TO MORNING SHIFT RN FOR CONTINUITY OF PATIENT CARE.
[2022-01-16 08:00] VITALS: BP 131/75
--- NOTE | 2022-01-16 08:13 | NUR ---
MS RN OPENING NOTES RECEIVED PT IN BED ASLEEP. AOx4, ABLE TO MAKE NEEDS KNOWN. IV SITE ON LEFT WRIST # 20 SL. ON RA BREATHING EVENLY AND UNLABORED. NO SOB ,NO SIGNS OF DISTRESS NOTED. BED IN LOW POSITION , SIDE RAILS UP X2 . CALL LIGHT WITHIN REACH.
[2022-01-16 08:35] LABS: LYMPHOCYTES % (MANUAL) 24 % (16-48); NEUTROPHILS % (MANUAL) 50 (42-76)
[2022-01-16 08:36] LABS: BASOPHILS % (MANUAL) 0 % (0.0-2.0); EOSINOPHILS % (MANUAL) 5 % (0-4); MONOCYTES % (MANUAL) 21 % (0-11.0)
[2022-01-16] MEDS: POLYETHYLENE GLYCOL 3350 17 GM POWD.PACK PO SCH (09:00)
[2022-01-16] MEDS: ENOXAPARIN SODIUM 40 MG/0.4 ML DISP.SYRIN SQ SCH (09:24)
[2022-01-16 16:00] VITALS: BP 125/77
--- NOTE | 2022-01-16 18:57 | NUR ---
MS RN CLOSING NOTES PT IN BED RESTING COMFORTABLY . PATIENT REMAINS AOx4, ABLE TO MAKE NEEDS KNOWN. IV SITE ON LEFT WRIST # 20 SL. ON RA BREATHING EVENLY AND UNLABORED. NO SOB ,NO SIGNS OF DISTRESS NOTED. ALL DUE MEDICATIONS GIVEN AND TOLERATED WELL WITH SIGNS OF ADVERSE REACTION NOTED. KEPT BED IN LOW POSITION , BRAKES LOCKED AND SIDE RAILS UP X2 FOR SAFETY. ALL NEEDS ATTENDED AND MET . CALL LIGHT WITHIN REACH.WILL ENDORSE TO NIGHT FOR JOSE.
--- NOTE | 2022-01-16 19:37 | NUR ---
MS RN OPENING NOTE RECEIVED PT AWAKE IN BED. A/O X4 AND ABLE TO MAKE NEEDS KNOWN. PT STABLE ON ROOM AIR. NO SOB OR S/S OF RESPIRATORY DISTRESS. BREATHING EVEN AND UNLABORED. IV ACCESS L WRIST 20 GAUGE, INTACT AND PATENT. NO COMPLAINTS OF PAIN AT THIS TIME. SAFETY PRECAUTIONS IN PLACE. BED IN LOWEST LOCKED POSITION, HOB ELEVATED, SIDE RAILS UP X2, AND CALL LIGHT AND TABLE WITHIN REACH. ALL NEEDS MET AT THIS TIME.
--- NOTE | 2022-01-16 19:57 | NUR ---
RN NOTE PT COMPLAINED OF PAIN 10/10 OF BLE. ADMINISTERED MORPHINE 3 MG FOR SEVERE PAIN ORDERED. MADE COMFORTABLE IN BED. ALL NEEDS MET AT THIS TIME.
[2022-01-16 20:00] VITALS: BP 135/89
[2022-01-17] MEDS: HYDROCODONE/APAP 10/325MG TABLET PO PRN ×2 (00:03→06:46)
--- NOTE | 2022-01-17 00:03 | NUR ---
RN NOTE PT COMPLAINED OF PAIN 10/10 OF BLE. ADMINISTERED NORCO 10-325 MG FOR SEVERE PAIN ORDERED. MADE COMFORTABLE IN BED. ALL NEEDS MET AT THIS TIME.
[2022-01-17] MEDS: MORPHINE SULFATE INJ 4 MG/ML DISP.SYRIN IV PRN ×3 (02:47→13:08)
--- NOTE | 2022-01-17 06:34 | NUR ---
MS RN CLOSING NOTE PT AWAKE IN BED. A/O X4 AND ABLE TO MAKE NEEDS KNOWN. PT STABLE ON ROOM AIR. NO SOB OR S/S OF RESPIRATORY DISTRESS. BREATHING EVEN AND UNLABORED. IV ACCESS L WRIST 20 GAUGE, INTACT AND PATENT. NO COMPLAINTS OF PAIN AT THIS TIME. ALL DUE MEDS GIVEN ORDERED. TURNED AND REPOSITIONED Q2H. KEPT CLEAN AND DRY. SAFETY PRECAUTIONS IN PLACE AT ALL TIMES. BED IN LOWEST LOCKED POSITION, HOB ELEVATED, SIDE RAILS UP X2, AND CALL LIGHT AND TABLE WITHIN REACH. ALL NEEDS MET AT THIS TIME AND WILL ENDORSE TO ONCOMING NURSE FOR JOSE.
--- NOTE | 2022-01-17 07:25 | NUR ---
RN OPENING NOTES RECEIVED PATIENT IN BED AWAKE, A/O X4, VERBALLY RESPONSIVE. NO SIGNS OF ACUTE DISTRESS NOTED. ON ROOM AIR, TOLERATED WELL. NO SOB NOTED, BREATHING EVEN AND UNLABORED. WITH IV ACCESS ON LEFT WRIST #20 GAUGE, INTACT AND PATENT. NO COMPLAINTS OF PAIN AT THIS TIME. SAFETY PRECAUTIONS IN PLACE AT ALL TIMES. BED IN LOWEST LOCKED POSITION, HOB ELEVATED, SIDE RAILS UP X2, AND CALL LIGHT AND TABLE WITHIN REACH. WILL CONTINUE TO MONITOR PATIENT.
[2022-01-17] MEDS: ENOXAPARIN SODIUM 40 MG/0.4 ML DISP.SYRIN SQ SCH (08:26)
[2022-01-17] MEDS: POLYETHYLENE GLYCOL 3350 17 GM POWD.PACK PO SCH (08:29)
[2022-01-17] MEDS ORDERED: DOCU250C14 PO (09:09)
[2022-01-17] MEDS ORDERED: ENOX40DI SQ (09:09)
[2022-01-17] MEDS ORDERED: SENN-175 PO (09:09)
[2022-01-17] MEDS ORDERED: BISA10SU61 RC (09:09)
[2022-01-17] MEDS ORDERED: POLY17PO29 PO (09:09)
[2022-01-17] MEDS ORDERED: MAGN400O6 PO (09:09)
[2022-01-17] MEDS ORDERED: HYDR-3980 PO (09:09)
[2022-01-17] MEDS ORDERED: Hydrocodone/Apap 5/325MG PO (09:09)
[2022-01-17] MEDS ORDERED: ACET325T53 PO (09:09)
--- NOTE | 2022-01-17 13:23 | NUR ---
SILVERLIGHT DEVELOPER NOTE PATIENT DISCHARGED TO [facility] IN STABLE CONDITION. PATIENT ALERT AND ORIENTED X4, ABLE TO MAKE NEEDS KNOWN. REMAINS STABLE ON ROOM AIR. ALL BELONGINGS ACCOUNTED FOR, FORM SIGNED BY PATIENT. MORPHINE 3MG IVP GIVEN PRIOR TO DISCHARGE FOR C/O PAIN. IV ACCESS REMOVED, NO BLEEDING NOTED. PRESSURE DRESSING APPLIED TO SITE. DISCHARGE INSTRUCTIONS GIVEN TO PATIENT WITH VERBALIZATION OF UNDERSTANDING. REPORT GIVEN TO GOMEZ Doe RN FROM [facility]. PATIENT PICKED UP BY [facility], LEFT UNIT @ [address] [employer] CN AWARE OF DISCHARGE.
== END 2022-01-17 13:30 | disposition home or self-care (01) | DRG 313 ==
LOC: ER 03:08 → MEDSG1 01-09 13:05 → MED 01-11 20:59
PROVIDERS: ADMIT Internal Medicine; ATTEND Registered Nurse
PROC: 0QSH35Z Reposition Left Tibia with External Fixation Device, Percutaneous Approach (ICD-10-PCS; principal; 2022-01-09)
PROC: 0QSG35Z Reposition Right Tibia with External Fixation Device, Percutaneous Approach (ICD-10-PCS; 2022-01-09)
DX: S82.872A Displaced pilon fracture of left tibia, initial encounter for closed fracture (principal); E87.2 Acidosis; S82.251A Displaced comminuted fracture of shaft of right tibia, initial encounter for closed fracture; W13.8XXA Fall from, out of or through other building or structure, initial encounter; Z20.822 Contact with and (suspected) exposure to COVID-19; Y92.9 Unspecified place or not applicable; S82.452A Displaced comminuted fracture of shaft of left fibula, initial encounter for closed fracture; S82.451A Displaced comminuted fracture of shaft of right fibula, initial encounter for closed fracture; R74.8 Abnormal levels of other serum enzymes
CPT/HCPCS: 36415; 71045-TC; 73564-TC; 73590-TC; 73600-TC; 73610-TC; 73700-TC; 80048-TC; 80053-TC; 82550-TC; 82553; 83605-TC; 83735-TC; 84100-TC; 85025-TC; 85730-TC; 86850-TC; 87081-TC; A6403; C9803; G0378; J0690; J1100; J1170; J1650; J2250; J2270; J2405; J2704; J3010; J3490; J7030; J7060; U0003